=== PATIENT | female | born 1995 | race Caucasian/White ===

== ENCOUNTER 2016-06-29 19:37 | Inpatient (IN) | payer BC ==
[~2016-06-29] VITALS: Ht 162.6 cm; Wt 63.5 kg
[2016-06-29 21:54] LABS: URINE APPEARANCE CLEAR (CLEAR); URINE BILIRUBIN NEG (NEG); URINE COLOR YELLOW; URINE EPITHELIAL CELL AUTO >30 /lpf (0-5); URINE NITRITE NEG (NEG); URINE PH 5.5 (4.5-7.5); URINE SPECIFIC GRAVITY 1.007 (1.000-1.030); UROBILINOGEN NEG (NEG); ZZUR CULT IF INDIC CLEAN CATCH NO
[2016-06-29] MEDS ORDERED: SODIUM CHLORIDE 0.9% 1000ML 1,000 ML IV STA ×2 (21:55)
[2016-06-29] MEDS ORDERED: ONDANSETRON INJ 2 MG/ML 2 ML VIAL IV STA (21:55)
[2016-06-29 21:58] LABS: MANUAL MICROSCOPIC REQUIRED? NO; REVIEW REQ? NO
[2016-06-29] MEDS ORDERED: OPTIRAY 320 IV PRN (22:00)
--- NOTE | 2016-06-29 22:00 | EMERGENCY ROOM VISIT NOTE ---
History Report prepared by Alejandro: Everardo Moe Under the Supervision of: Dr. Ethan Huber M.D. First contact with patient: 21:40 Chief Complaint: DIARRHEA Stated Complaint: DIARRHEA OVER 24 HRS, BLOOD,BLOATING,GAS,[place] Nursing Triage Summary: Patient reports diarrhea for over 24 hours that started out just watery and now is just blood. Patient states "I have really bad cramps and pain as well." History of Present Illness The patient is a 20 year old female who presents to the Emergency Room with complaints of persistent abdominal pain beginning about 2 weeks ago. She notes that she began feeling bloated and having pain since getting back from [place] for spring 2 weeks ago. She describes the pain as sharp, and notes that it began radiating to her back today. She adds that the pain is worsened with walking. The patient notes that her symptoms worsened 3 days ago. She went to [facility] for an unrelated cough, but also discussed the ongoing abdominal pain. She was told it was constipation and tried taking MiraLAX upon recommendation of [facility] but did not find relief of her symptoms. The patient tried taking a laxative last night. She has had diarrhea since taking the laxative, but her abdominal pain has persisted. She denies having diarrhea prior to taking the laxative. The patient notes having blood in her stools today. She has felt nauseous, but denies having any fever, vomiting, or urinary symptoms. She admits to taking Pepcid recently for heartburn. Source of History: patient Onset: 2 weeks ago Position: abdomen Quality: other (abdominal pain; bloating) Timing: other (persistent) Modifying Factors (Worsening): other (walking) Associated Symptoms: + diarrhea, No fevers, No urinary symptoms, No vomiting Review of Systems See HPI for pertinent positives & negatives. A total of 10 systems reviewed and were otherwise negative. Past Medical & Surgical Medical Problems: (1) No Known Active Medical Problems Family History No pertinent family history stated. Social History Smoking Status: Never Smoker Housing Status: lives with roommate Occupation Status: [employer] student Current/Historical Medications Scheduled Azithromycin (Zithromax Z-Cheng), 1 PKT PO UD Scheduled PRN Albuterol Sulfate (Proair Respiclick), 2 PUFFS INH Q4H PRN for Cough Allergies Coded Allergies: No Known Allergies (Unverified , 06/29/16) Physical Exam Vital Signs Date Time Temp Pulse Resp B/P Pulse Ox O2 Delivery O2 Flow Rate FiO2 06/30/16 00:23 104 18 142/85 98 Room Air 06/29/16 23:00 91 18 125/87 99 Room Air 06/29/16 21:36 101 16 141/92 100 Room Air 06/29/16 19:42 37.1 121 16 123/81 98 Room Air Physical Exam GENERAL: Patient is in no acute distress. HEENT: No acute trauma, normocephalic atraumatic, mucous membranes moist, no nasal congestion, no scleral icterus. NECK: No stridor, no adenopathy, no meningismus, trachea is midline. LUNGS: Clear to auscultation bilaterally, no wheeze, no rhonchi, breath sounds equal. HEART: Without murmurs gallops or rubs, regular rate and rhythm. ABDOMEN: Soft; diffusely mildly tender; bowel sounds positive, no hernias, no peritonitis. EXTREMITIES: No cyanosis or edema, full range of motion of all the joints without pain or difficulty, no signs for acute trauma. NEUROLOGIC: Oriented x 3, no acute motor or sensory deficits, no focal weakness. SKIN: No rash, no jaundice, no diaphoresis. Medical Decision & Procedures ER Provider Diagnostic Interpretation: Radiology results and stated below per my review and radiologist interpretation: CT ABDOMEN & PELVIS: Colonic wall thickening from cecum through descending colon, marked at the cecum and ascending colon, and there are adjacent inflammatory changes. Findings are compatible with colitis, which may be infectious or inflammatory etiology. Mild to moderate free fluid in the pelvis. No free air. No evidence of small bowel obstruction. Radiologist: Michael Salguero MD Laboratory Results 06/29/16 21:30 Red Blood Count 4.78, Mean Corpuscular Volume 91.8, Mean Corpuscular Hemoglobin 33.1, Mean Corpuscular Hemoglobin Concent 36.0, Mean Platelet Volume 10.4, Neutrophils (%) (Auto) 85.1, Lymphocytes (%) (Auto) 7.5, Monocytes (%) (Auto) 6.3, Eosinophils (%) (Auto) 0.5, Basophils (%) (Auto) 0.2, Neutrophils # (Auto) 16.79, Lymphocytes # (Auto) 1.48, Monocytes # (Auto) 1.24, Eosinophils # (Auto) 0.09, Basophils # (Auto) 0.03 06/29/16 21:30 Test 06/29/16 21:30 06/29/16 21:35 White Blood Count 19.70 K/uL (4.8-10.8) Red Blood Count 4.78 M/uL (4.2-5.4) Hemoglobin 15.8 g/dL (12.0-16.0) Hematocrit 43.9 % (37-47) Mean Corpuscular Volume 91.8 fL (80-100) Mean Corpuscular Hemoglobin 33.1 pg (25-34) Mean Corpuscular Hemoglobin Concent 36.0 g/dl (32-36) Platelet Count 327 K/uL (130-400) Mean Platelet Volume 10.4 fL (7.4-10.4) Neutrophils (%) (Auto) 85.1 % Lymphocytes (%) (Auto) 7.5 % Monocytes (%) (Auto) 6.3 % Eosinophils (%) (Auto) 0.5 % Basophils (%) (Auto) 0.2 % Neutrophils # (Auto) 16.79 K/uL (1.4-6.5) Lymphocytes # (Auto) 1.48 K/uL (1.2-3.4) Monocytes # (Auto) 1.24 K/uL (0.11-0.59) Eosinophils # (Auto) 0.09 K/uL (0-0.5) Basophils # (Auto) 0.03 K/uL (0-0.2) RDW Standard Deviation 43.5 fL (36.4-46.3) RDW Coefficient of Variation 13.1 % (11.5-14.5) Immature Granulocyte % (Auto) 0.4 % Immature Granulocyte # (Auto) 0.07 K/uL (0.00-0.02) Anion Gap 7.0 mmol/L (3-11) Est Creatinine Clear Calc Drug Dose 120.3 ml/min Estimated GFR () 149.2 Estimated GFR (Non- 128.7 BUN/Creatinine Ratio 5.1 (10-20) Calcium Level 9.3 mg/dl (8.5-10.1) Total Bilirubin 0.6 mg/dl (0.2-1) Aspartate Amino Transf (AST/SGOT) 19 U/L (15-37) Alanine Aminotransferase (ALT/SGPT) 22 U/L (12-78) Alkaline Phosphatase 83 U/L (45-117) Total Protein 7.8 gm/dl (6.4-8.2) Albumin 4.0 gm/dl (3.4-5.0) Globulin 3.8 gm/dl (2.5-4.0) Albumin/Globulin Ratio 1.1 (0.9-2) Lipase 87 U/L (73-393) Human Chorionic Gonadotropin, Qual NEG (NEG) Urine Color YELLOW Urine Appearance CLEAR (CLEAR) Urine pH 5.5 (4.5-7.5) Urine Specific [place] 1.007 (1.000-1.030) Urine Protein NEG (NEG) Urine Glucose (UA) NEG (NEG) Urine Ketones 1+ (NEG) Urine Occult Blood NEG (NEG) Urine Nitrite NEG (NEG) Urine Bilirubin NEG (NEG) Urine Urobilinogen NEG (NEG) Urine Leukocyte Esterase TRACE (NEG) Urine WBC (Auto) 1-5 /hpf (0-5) Urine RBC (Auto) 0-4 /hpf (0-4) Urine Hyaline Casts (Auto) 1-5 /lpf (0-5) Urine Epithelial Cells (Auto) >30 /lpf (0-5) Urine Bacteria (Auto) NEG (NEG) Urine Test NEG (NEG) Laboratory results reviewed by me. Medications Administered Medications (Trade) Dose Ordered Sig/Álvaro Route Start Time Stop Time Status Last Admin Dose Admin Sodium Chloride 1,000 ml @ 125 mls/hr Q8H STAT IV 06/29/16 21:55 06/30/16 05:54 06/29/16 23:18 125 MLS/HR Sodium Chloride (Nss 1000ml) 1,000 ml @ 999 mls/hr Q1H1M STAT IV 06/29/16 21:55 06/29/16 22:55 DC 06/29/16 22:05 999 MLS/HR Ondansetron HCl (Zofran Inj) 4 mg NOW STAT IV 06/29/16 21:55 06/29/16 21:57 DC 06/29/16 22:03 4 MG Ketorolac Tromethamine (Toradol Inj) 30 mg NOW STAT IV 06/30/16 00:24 06/30/16 00:26 DC 06/30/16 00:37 30 MG ED Course 2147: The patient was evaluated in room A4B. A complete history and physical exam was performed. 5: Ordered Zofran Inj 4 mg IV, NSS 1,000 ml @ 999 mls/hr IV, and NSS 1,000 ml @ 125 mls/hr IV. 4: Ordered Toradol Inj 30 mg IV. 3: I updated the patient. 0110: Discussed the patient's case with Dr. Hui. The patient will be evaluated for further management. Medical Decision Differentials include appendicitis, colitis, diverticulitis, anemia, electrolyte imbalance, constipation, hemorrhoids, and inflammatory bowel disease. There is a significant leukocytosis of 19,000, this could be consistent with infection. No concerning anemia. No significant electrolyte abnormality, kidney failure or hepatitis. There is no pancreatitis. Urinalysis does not suggest infection. testing is negative. Stool C. difficile testing is negative, stool cultures are pending. Abdominal and pelvis CT shows diffuse colitis. The patient was given IV saline, IV Zofran and IV Toradol, she is more comfortable. The patient has had ongoing issues for weeks. She has a marked leukocytosis, she has diffuse colitis and is having bloody bowel movements, I do think admission/observation would be warranted. The cause for the colitis is unclear. A colonoscopy may be required. I spoke with the patient and case management. The on-call hospitalist was consulted. Consults Time Called: 99 Consulting Physician: Dr. Hui [facility] Returned Call: [phone] Discussed the patient's case with Dr. Hui. The patient will be evaluated for further management. Impression Primary Impression: Bloody diarrhea Additional Impressions: Colitis Leukocytosis Scribe Attestation The scribe's documentation has been prepared under my direction and personally reviewed by me in its entirety. I confirm that the note above accurately reflects all work, treatment, procedures, and medical decision making performed by me. Departure Information Dispostion Being Evaluated By Hospitalist Referrals [facility] (PCP) Patient Instructions My [facility] Problem Qualifiers
[2016-06-29 22:05] LABS: BASO % 0.2 %; BASO ABS # 0.03 K/uL (0-0.2); COMPLETE YES; EOS % 0.5 %; HEMATOCRIT 43.9 % (37-47); IG% 0.4 %; LYMPH % 7.5 %; LYMPH ABS # 1.48 K/uL (1.2-3.4); MEAN CELL VOLUME 91.8 fL (80-100); MEAN CORPUSCULAR HEMOGLOBIN 33.1 pg (25-34); MEAN PLATELET VOLUME 10.4 fL (7.4-10.4); MONO % 6.3 %; NEUT % 85.1 %; PLATELET COUNT 327 K/uL (130-400); RED BLOOD COUNT 4.78 M/uL (4.2-5.4)
[2016-06-29 22:16] LABS: BUN/CREATININE RATIO 5.1 (10-20); CALCIUM 9.3 mg/dl (8.5-10.1); CREATININE 0.65 mg/dl (0.60-1.20); POTASSIUM 3.5 mmol/L (3.5-5.1)
[2016-06-29 22:19] LABS: ALB/GLOB RATIO 1.1 (0.9-2)
[2016-06-29] MEDS ORDERED: AZITTAB PO (22:21)
[2016-06-29] MEDS ORDERED: ALBU18002 INH (22:21)
[2016-06-29 22:30] LABS: PREG INTERNAL NEGATIVE QC NEG CLEAR BACKGROUND; PREG INTERNAL POSITIVE QC POS CONTROL LINE
[2016-06-30] VITALS (8 sets, daily range): BP systolic 105–116; BP diastolic 72–75; PULSE 72–92; TEMP 36.6–37; O2SAT 97–100; Ht 162.6 cm; Wt 63.5 kg
[2016-06-30] MEDS ORDERED: KETOROLAC TROMETHAMINE 30 MG/ML VIAL IV STA (00:24)
--- NOTE | 2016-06-30 01:48 | History and Physical ---
History & Physical Date & Time of Service: Jun 30, 2016 at 01:48 Chief Complaint: Diarrhea Over 24 Hrs, Blood,Bloating,Gas,[place] Primary Care Physician: [facility] History of Present Illness Source: patient This is a 20 y/o F, with no significant pmh who presents with a 24 hour period of bloody diarrhea. She reports that she was in [place] about 2 weeks ago for spring and since her return, she has had significant bloating, constipation and no appetitie. She also started experiencing intense sharp pains in her lower abdomen about 4 days ago. The pain is intermittent and about 6/10. About 2 days ago, she went to [facility] for an unrelated cough and had mentioned her symptoms. She was told to take miralax and a laxative for constipation. Since doing so, she has had multiple episodes of bloody diarrhea. Currently her stools are primarily blood. She also received Zpac for her cough of which she has taken 1 dose. She has also been using Pepcid, and peptobismol. This has never happened before. Her trip in and around [place] was unremarkable. None of her friends who travelled with her are sick. She has some associated nausea and chills. She denies family history of Ulcerative colitis / Crohns Social History Smoking Status: Never Smoker Alcohol Use: socially Drug Use: none Marital Status: single Housing status: lives with roommate Occupational Status: [employer] student Allergies Coded Allergies: No Known Allergies (Unverified , 06/29/16) Home Medications Scheduled Azithromycin (Zithromax Z-Cheng), 1 PKT PO UD Scheduled PRN Albuterol Sulfate (Proair Respiclick), 2 PUFFS INH Q4H PRN for Cough Review of Systems Constitutional: + chills, + fatigue, + weakness, No fever Eyes: No worsening of vision ENT: No hearing loss Respiratory: No cough, No dyspnea at rest, No dyspnea on exertion, No shortness of breath, No sputum, No wheezing Cardiovascular: No chest pain, No edema, No orthopnea Abdomen: + diarrhea, + nausea, + pain, No vomiting Genitourinary - Female: No dysuria, No urinary frequency, No urinary incontinence Physical Exam Vital Signs Date Time Temp Pulse Resp B/P Pulse Ox O2 Delivery O2 Flow Rate FiO2 06/30/16 00:23 104 18 142/85 98 Room Air 06/29/16 23:00 91 18 125/87 99 Room Air 06/29/16 21:36 101 16 141/92 100 Room Air 06/29/16 19:42 37.1 121 16 123/81 98 Room Air General Appearance: no apparent distress Eyes: PERRL, EOMI Respiratory/Chest: lungs clear, normal breath sounds, no respiratory distress, no accessory muscle use Abdomen/GI: soft, + tenderness (diffusely), + abnormal bowel sounds ( hyperactive bowel sounds) Back: no CVA tenderness Extremities/Musculoskelatal: no calf tenderness, normal capillary refill, no pedal edema Neurologic/Psych: no motor/sensory deficits, alert, normal mood/affect, oriented x 3 Diagnostics Laboratory Results Results Past 24 Hours Test 06/29/16 21:30 06/29/16 21:35 Range/Units White Blood Count 19.70 4.8-10.8 K/uL Red Blood Count 4.78 4.2-5.4 M/uL Hemoglobin 15.8 12.0-16.0 g/dL Hematocrit 43.9 37-47 % Mean Corpuscular Volume 91.8 80-100 fL Mean Corpuscular Hemoglobin 33.1 25-34 pg Mean Corpuscular Hemoglobin Concent 36.0 32-36 g/dl Platelet Count 327 130-400 K/uL Mean Platelet Volume 10.4 7.4-10.4 fL Neutrophils (%) (Auto) 85.1 % Lymphocytes (%) (Auto) 7.5 % Monocytes (%) (Auto) 6.3 % Eosinophils (%) (Auto) 0.5 % Basophils (%) (Auto) 0.2 % Neutrophils # (Auto) 16.79 1.4-6.5 K/uL Lymphocytes # (Auto) 1.48 1.2-3.4 K/uL Monocytes # (Auto) 1.24 0.11-0.59 K/uL Eosinophils # (Auto) 0.09 0-0.5 K/uL Basophils # (Auto) 0.03 0-0.2 K/uL RDW Standard Deviation 43.5 36.4-46.3 fL RDW Coefficient of Variation 13.1 11.5-14.5 % Immature Granulocyte % (Auto) 0.4 % Immature Granulocyte # (Auto) 0.07 0.00-0.02 K/uL Sodium Level 138 136-145 mmol/L Potassium Level 3.5 3.5-5.1 mmol/L Chloride Level 103 98-107 mmol/L Carbon Dioxide Level 28 21-32 mmol/L Anion Gap 7.0 3-11 mmol/L Blood Urea Nitrogen 3 7-18 mg/dl Creatinine 0.65 0.60-1.20 mg/dl Est Creatinine Clear Calc Drug Dose 120.3 ml/min Estimated GFR () 149.2 Estimated GFR (Non- 128.7 BUN/Creatinine Ratio 5.1 10-20 Random Glucose 92 70-99 mg/dl Calcium Level 9.3 8.5-10.1 mg/dl Total Bilirubin 0.6 0.2-1 mg/dl Aspartate Amino Transf (AST/SGOT) 19 15-37 U/L Alanine Aminotransferase (ALT/SGPT) 22 12-78 U/L Alkaline Phosphatase 83 45-117 U/L Total Protein 7.8 6.4-8.2 gm/dl Albumin 4.0 3.4-5.0 gm/dl Globulin 3.8 2.5-4.0 gm/dl Albumin/Globulin Ratio 1.1 0.9-2 Lipase 87 73-393 U/L Human Chorionic Gonadotropin, Qual NEG NEG Urine Color YELLOW Urine Appearance CLEAR CLEAR Urine pH 5.5 4.5-7.5 Urine Specific [place] 1.007 1.000-1.030 Urine Protein NEG NEG Urine Glucose (UA) NEG NEG Urine Ketones 1+ NEG Urine Occult Blood NEG NEG Urine Nitrite NEG NEG Urine Bilirubin NEG NEG Urine Urobilinogen NEG NEG Urine Leukocyte Esterase TRACE NEG Urine WBC (Auto) 1-5 0-5 /hpf Urine RBC (Auto) 0-4 0-4 /hpf Urine Hyaline Casts (Auto) 1-5 0-5 /lpf Urine Epithelial Cells (Auto) >30 0-5 /lpf Urine Bacteria (Auto) NEG NEG Urine Test NEG NEG Microbiology Results 06/29/16 Shiga Toxin Test, Received Pending 06/29/16 Stool Culture, Received Pending 06/29/16 C.difficile Toxin B Gene (PCR) - Final, Complete No C. difficile toxin B gene detected Impression Assessment and Plan This is a 20 y/o F who presents with acute bloody diarrhea. Etiologies considered include infectious (e.coli vs. shigella, vs parasitic/amebic), vs Inflammatory (IBD) Hematochezia: leucocytosis C.Diff negative Shiga, stool cultures, ova/parasite pending NSS Zofran for nausea GI consult Hemoccult pending H/H is stable- repeat in the AM CT abd with nonspecific colitis DVT Proph ambulation GERD Protonix Assessment and Plan Attending Addendum: I have physically seen and examined this patient, have directed their medical care, have supervised the medical residents activities, and agree with the H&P as noted above, with the following changes: The patient is awake, well-developed and adequately nourished, alert and oriented 3, normocephalic and atraumatic, lying in bed and in no acute distress. HEENT--PERRL, EOMI, mucous membranes and oropharynx dry. Neck--supple, no JVD or bruits, thyroid normal, trachea midline, no adenopathy. Heart--normal S1 and S2, no extra beats, no murmurs, rubs or gallops. Lungs--clear bilaterally with good air movement, no respiratory distress, no accessory muscle use. Abdomen--hyperactive bowel sounds, generalized tenderness, nondistended, no hernias or masses, no organomegaly. Extremities--no cyanosis, clubbing or edema. There are good distal pulses b/l. Dermatologic--normal skin turgor, normal color, warm and dry, no abnormal lymph nodes, no rash. Neurologic--cranial nerves II through XII grossly intact, motor and sensory examination normal. Rheumatologic--normal range of motion, nontender, muscles and joints. Psychiatric--normal affect. Assessment and Plan: Acute bloody diarrhea--patient will be admitted to the medical floor with IV fluids rehydration and nothing by mouth status until seen by gastroenterology. Potential etiologies include infectious such as viral, bacterial, or parasitic, versus inflammatory bowel disease. Would not start antibiotics. Her C. difficile study is negative. She'll be placed on Zofran 4 mg IV every 6 hours when necessary for nausea and 40 mg IV daily.
[2016-06-30] MEDS ORDERED: ALUMINUM/MAGNESIUM/SIMETH (MAALOX MAX) 30 ML UDC PO PRN (02:00)
[2016-06-30] MEDS ORDERED: MAGNESIUM HYDROXIDE SUSP 30 ML UDC PO PRN (02:00)
[2016-06-30] MEDS ORDERED: POLYETHYLENE (MIRALAX) 17 GM PACK PO PRN (02:00)
[2016-06-30] MEDS: SODIUM CHLORIDE 0.9% 1000ML 1,000 ML IV SCH ×3 (03:55→22:29)
[2016-06-30] MEDS ORDERED: INFLUENZA VIRUS QUAD VACCINE 0.5 ML SYR IM. ONE (05:45)
[2016-06-30] MEDS ORDERED: INFLUENZA ADMINISTRATION CHARGE ONE (05:45)
--- NOTE | 2016-06-30 07:58 | DIAGNOSTIC IMAGING REPORT ---
CT SCAN OF THE ABDOMEN AND PELVIS WITH IV CONTRAST CLINICAL HISTORY: Diarrhea. Hematochezia. Bloating. Generalized abdominal pain. COMPARISON STUDY: No priors. TECHNIQUE: Following the IV administration of 91 cc of Optiray 320, CT scan of the abdomen and pelvis is performed from the lung bases to the proximal femora. Images are reviewed in the axial, sagittal, and coronal planes. IV contrast was administered without complication. Automated dose control exposure was utilized. CT DOSE: 310.12 mGy.cm FINDINGS: Lung bases: The heart is normal in size and without pericardial effusion. Minimal tree-in-bud nodularity is identified at the left lung base. The lung bases are otherwise clear. Liver: The contrast-enhanced liver is normal in size, contour, and attenuation. There is no intrahepatic biliary ductal dilatation. The hepatic veins and portal veins are patent. Gallbladder: Unremarkable. Spleen: Normal in size and attenuation. Pancreas: Unremarkable. Adrenal glands: Unremarkable. Kidneys: The contrast enhanced kidneys are normal in size and without hydronephrosis. The kidneys enhance symmetrically. Abdominal vasculature: The abdominal aorta is normal in course and caliber. Bowel: The small bowel and colon are normal in course and caliber. There is significant wall thickening and edema identified throughout the colon, Jami involving the cecum and ascending colon. There is significant right sided pericolonic fluid. The appearance is consistent with a nonspecific colitis. The appendix is not clearly visualized, likely due to pericecal inflammation. Peritoneum: There is trace perihepatic free fluid as well as a moderate volume of free fluid in the pelvis. No intraperitoneal free air is seen. There is a fat-containing umbilical hernia. Lymphadenopathy: Prominent mesenteric lymph nodes are likely on a reactive basis. Pelvic viscera: The bladder, uterus, and adnexa are normal as visualized. There are bilateral ovarian follicles. Skeletal structures: No lytic or blastic lesions are seen. IMPRESSION: 1. Findings are consistent with a nonspecific pancolitis, likely on an infectious or inflammatory basis in this age group. 2. There is a small volume of associated abdominopelvic ascites Electronically signed by: Ethan Dutta M.D. 06/30/2016 7:56 AM Dictated Date/Time: 06/30/2016 7:51 AM
--- NOTE | 2016-06-30 08:13 | Family Medicine Progress Note ---
Progress Note Date of Service Jun 30, 2016. Subjective Pt evaluation today including: conversation w/ patient, conversation w/ family , physical exam, chart review, lab review Patient says that her diarrhea was countless and consisting of bright red blood in the last 24 hours. Overnight however, she has seen less bright red blood and finds the stool to be more dark and tarry. She has had 8 episodes already this morning, but this is a significant decrease since prior. Prior to the her recent trip to [place], she was have regular, once daily bowel movements. Her nausea is improved with Zofran. Her abdomen still feels bloated and she feels diffuse abdominal discomfort, but it is tolerable currently. She otherwise denies symptoms of anemia, including lightheadedness, dizziness, SOB, CP, weakness. She denies family history of GI issues. Constitutional: No fever, No sweats Respiratory: No shortness of breath Cardiovascular: No chest pain, No edema, No palpitations Abdomen: + GI bleeding, + diarrhea, + pain, No nausea, No vomiting Female : No dysuria, No hematuria Objective Vital Signs Date Time Temp Pulse Resp B/P Pulse Ox O2 Delivery O2 Flow Rate FiO2 06/30/16 02:58 36.6 92 18 105/72 Room Air 06/30/16 02:57 36.6 92 18 105/72 100 Room Air 06/30/16 02:29 90 18 127/65 97 06/30/16 00:23 104 18 142/85 98 Room Air 06/29/16 23:00 91 18 125/87 99 Room Air 06/29/16 21:36 101 16 141/92 100 Room Air 06/29/16 19:42 37.1 121 16 123/81 98 Room Air Physical Exam General Appearance: WD/WN, no apparent distress Eyes: normal inspection ENT: hearing grossly normal Neck: supple, no adenopathy Respiratory/Chest: chest non-tender, lungs clear, normal breath sounds, no respiratory distress, no accessory muscle use Cardiovascular: regular rate, rhythm, no murmur Abdomen: normal bowel sounds, soft, no organomegaly, + rebound, + tenderness, + pertinent finding (Mild bloating) Neurologic/Psychiatric: alert, normal mood/affect, oriented x 3 Skin: normal color, warm/dry, no rash Laboratory Results Results Past 24 Hours Test 06/30/16 00:00 06/30/16 08:20 06/30/16 09:12 06/30/16 21:37 Range/Units White Blood Count 11.67 4.8-10.8 K/uL Red Blood Count 3.99 4.2-5.4 M/uL Hemoglobin 12.9 12.0-16.0 g/dL Hematocrit 36.1 37-47 % Mean Corpuscular Volume 90.5 80-100 fL Mean Corpuscular Hemoglobin 32.3 25-34 pg Mean Corpuscular Hemoglobin Concent 35.7 32-36 g/dl Platelet Count 208 130-400 K/uL Mean Platelet Volume 9.9 7.4-10.4 fL Neutrophils (%) (Auto) 79.0 % Lymphocytes (%) (Auto) 12.6 % Monocytes (%) (Auto) 6.9 % Eosinophils (%) (Auto) 0.9 % Basophils (%) (Auto) 0.2 % Neutrophils # (Auto) 9.22 1.4-6.5 K/uL Lymphocytes # (Auto) 1.47 1.2-3.4 K/uL Monocytes # (Auto) 0.81 0.11-0.59 K/uL Eosinophils # (Auto) 0.10 0-0.5 K/uL Basophils # (Auto) 0.02 0-0.2 K/uL RDW Standard Deviation 42.9 36.4-46.3 fL RDW Coefficient of Variation 13.1 11.5-14.5 % Immature Granulocyte % (Auto) 0.4 % Immature Granulocyte # (Auto) 0.05 0.00-0.02 K/uL Sodium Level 142 136-145 mmol/L Potassium Level 3.5 3.5-5.1 mmol/L Chloride Level 110 98-107 mmol/L Carbon Dioxide Level 23 21-32 mmol/L Anion Gap 9.0 3-11 mmol/L Blood Urea Nitrogen 3 7-18 mg/dl Creatinine 0.49 0.60-1.20 mg/dl Est Creatinine Clear Calc Drug Dose 159.6 ml/min Estimated GFR () > 150.0 Estimated GFR (Non- 141.2 BUN/Creatinine Ratio 6.3 10-20 Random Glucose 77 70-99 mg/dl Calcium Level 8.5 8.5-10.1 mg/dl Stool Occult Blood POSITIVE NEGATIVE Microbiology Results 3/30/17 WBC Smear - Final, Complete Assessment and Plan 20 year old female admitted with abdominal bloating and acute bloody diarrhea, likely secondary to either infection or inflammation Hematochezia - c.diff negative - NPO with mIVF NSS - Zofran IV 4mg PRN - Pain management: Tylenol PO 650mg q4h - Heating pad for abdominal symptom relief - Trace stool leukocytes, shiga, stool cultures, ova/parasite pending - GI consulted- recs appreciated - Monitor CBC, BMP GERD - Protonix IV 40mg daily Prophylaxis - Ambulation Continued [facility] stay due to: inadequate po fluid intake, multiple IV medications needed Discharge planning: home Resident Tracking Resident Involvement: Resident Care Provided Care Provided: Adult Hospital Medicine History Resident Physician Supervision Note: I was present with Dr. Shah during the history and exam. I discussed the case with the resident and agree with the findings and plan as documented in the note. Any exceptions or clarifications are listed here. Pt seen and examined at bedside. Mild diffuse abdominal crampy discomfort without hematochezia or melena since previous evaluation. Her BM are generally regular, daily and without comment. Reports no nausea, vomiting, lightheadedness , headache, vision/hearing changes, sensory changes. Symptoms onset during 1 week vacation in [place] for spring. At that time, patient consumed copious amounts of alcohol (resulting in at least one black out ) and ate several varieties of local food prepared [place] She denies any other substance use. She reports that she is not sexually active at this time nor during the trip. No family history of abdominal disorders or complaints c/w IBD. General Appearance: WD/WN, no apparent distress Respiratory: chest non-tender, lungs clear, normal breath sounds, no respiratory distress Cardiovascular: normal peripheral pulses, regular rate, rhythm, no edema, no murmur Gastrointestinal: normal bowel sounds, soft, no organomegaly, tenderness (mild) Assessment/Plan 20 y/o female w/ recent alcohol overuse, h/o GERD and international travel to with exposures presents w/ abd pain and hematochezia Abd pain and hematochezia - pancolitis on CT abd - GI aware and recommendations appreciated. Prep for colonoscopy in AM. Monitor I/O. Check CBC in AM. PPI. Alcohol overuse - counseled patient regarding risks and dangers as well as implications re: current medical issues in relation to overuse.
[2016-06-30] MEDS: ONDANSETRON INJ 2 MG/ML 2 ML VIAL IV PRN ×2 (08:15→22:29)
[2016-06-30] MEDS: ACETAMINOPHEN 325 MG TAB PO PRN ×3 (08:18→17:07)
[2016-06-30 09:14] LABS: HEMATOCRIT 36.1 % (37-47); MEAN CELL VOLUME 90.5 fL (80-100); MEAN CORPUSCULAR HEMOGLOBIN 32.3 pg (25-34); MEAN CORPUSCULAR HGB CONC 35.7 g/dl (32-36); MEAN PLATELET VOLUME 9.9 fL (7.4-10.4); PLATELET COUNT 208 K/uL (130-400); RED BLOOD COUNT 3.99 M/uL (4.2-5.4); WHITE BLOOD COUNT 11.67 K/uL (4.8-10.8)
[2016-06-30 09:15] LABS: BLOOD UREA NITROGEN 3 mg/dl (7-18); BUN/CREATININE RATIO 6.3 (10-20); CALCIUM 8.5 mg/dl (8.5-10.1); CARBON DIOXIDE 23 mmol/L (21-32); CHLORIDE 110 mmol/L (98-107); CREATININE 0.49 mg/dl (0.60-1.20); GLUCOSE 77 mg/dl (70-99); POTASSIUM 3.5 mmol/L (3.5-5.1); SODIUM 142 mmol/L (136-145)
[2016-06-30] MEDS: PANTOprazole INJ 40 MG in SYRINGE 0 ML IV SCH (11:50)
[2016-06-30 13:13] LABS: BASO % 0.2 %; BASO ABS # 0.02 K/uL (0-0.2); COMPLETE YES; EOS % 0.9 %; IG% 0.4 %; LYMPH % 12.6 %; LYMPH ABS # 1.47 K/uL (1.2-3.4); MONO % 6.9 %
[2016-06-30] MEDS ORDERED: LAVAGE SOLUTION 4000ML PO SCH (18:00)
--- NOTE | 2016-06-30 18:05 | GASTROINTESTINAL CONSULTATION ---
DATE OF CONSULTATION: 06/30/2016 CHIEF COMPLAINT: Abdominal pain, bloating, abnormal CT, rectal bleeding. HISTORY OF PRESENT ILLNESS: Ms. Bedolla is a 20-year-old white female, attending [employer] for [employer] in her second year. The patient was admitted because of increasing abdominal discomfort with rectal bleeding. The patient had traveled to [place] for spring with roommates and had some sense of bloating during that visit while in [place]. At that time she was taking medications that included Advil. However, she was not experiencing diarrhea or any rectal bleeding. She continued to experience bloating and discomfort and actually had diminished stool output by her recollection. She also had fairly significant fatigue that required her to sleep earlier and longer in the daytime than usual. The patient also has been experiencing a chronic cough for the past month. 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 The patient was seen at [facility] on Monday because of the persistent cough as well as some of the bloating and they had prescribed an inhaler as well as a Z-Cheng, for which she took the first 2 tablets, but took no additional medications. Prior to this, she had been on no antibiotics or taking any other medications other than NSAIDs. On Monday, she began taking some mild laxative products and this produced a significant increase in her stool patterns and ultimately between Monday and Monday, this became bloody in nature. In the past for her reflux, she had been on Pepcid and she was also taking Pepto-Bismol while in [place]. The patient denies any past medical or surgical history other than the vocal cord nodules and perhaps reflux, for which she was taking Zantac. ALLERGIES: She has no known drug allergies. MEDICATIONS: Her current home medications are essentially none except for the prescription of Z-Cheng, for which she took 1 agent. She denied any chest pains or shortness of breath despite a chronic cough. There was a clear sputum production at times. The patient denies any fevers, chills for the past month including the recent abdominal discomfort and bloody diarrhea. FAMILY HISTORY: Unremarkable. There is no history of inflammatory bowel disease by way of ulcerative colitis or Crohn disease in first or second degree relatives. SOCIAL HISTORY: The patient denies tobacco usage. She does drink alcoholic beverages on occasion, particularly weekends. 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 REVIEW OF SYSTEMS: Otherwise noncontributory based on 14-point exam. The patient denies dysuria, hematuria, significant joint aches, skin disorders or prior gastrointestinal illnesses by way of diarrhea, constipation, melena, bright red blood per rectum, hematemesis or coffee-ground emesis. PHYSICAL EXAMINATION: GENERAL: Today shows a well-developed female, in no acute distress. HEENT: The sclerae are anicteric, conjunctiva moist. Oral mucosa moist. HEART: Normal S1, S2. LUNGS: Clear to auscultation without rales, rhonchi or wheeze. ABDOMEN: Soft, nontender, nondistended with normal active bowel sounds. There is no rebound or guarding. I do not appreciate hepatosplenomegaly. EXTREMITIES: Without clubbing, cyanosis or edema. RECTAL: Deferred at this time. LABORATORY STUDIES: Imaging on admission included a CT scan that shows a moderate pancolonic nonspecific colitis with fluid accumulation on the right side around the colon. There is no evidence of free air and/or obstruction. The remainder of the abdominal contents including liver, spleen, pancreas and kidneys are all normal. Most of the pericolonic fluid is occurring on the right side. There are prominent reactive appearing mesenteric lymph nodes. Laboratory studies on admission showed a white count of 19.7 with a hemoglobin of 15.8 and platelets 327,000. Repeat labs this morning show white count down to 11.7, hemoglobin 12.9, platelets 208,000. The patient's LFTs on admission and lipase were all normal including total bili 0.6, ALT 22, AST 19, alk phos 93, lipase 87. Beta-hCG is negative. The stool studies that are currently available including negative C. diff status, fecal white blood cells are moderate with colonic leticia noted. There is no evidence for Shigella, Salmonella, although this is a preliminary value. There is no Campylobacter identified. IMPRESSION: The patient with relative acute onset of rectal bleeding. She has had a few weeks of bloating in the abdomen, which occurred during her travel to [place]. No one else has any similar illnesses. At the present time there are also several stool studies including ova and parasites, Giardia and other agents for diarrhea pathogens that are pending. The differential diagnosis includes an unidentified infectious etiology as well as chronic inflammatory bowel disease as the patient's first presentation. I do not see any evidence based on her BUN and creatinine and CBC that a microcytic anemia is developing or that an upper GI bleed is suspected. I made the following recommendations. We will plan for colonoscopy tomorrow after bowel prep. With a normal BUN and creatinine, I do not think that upper endoscopy is currently necessary. However, this will eventually need to be performed, given the patient's history of reflux and vocal cord changes that may be reflux related as well as the patient's hoarseness. This can be arranged as an outpatient once this acute illness is resolved. We will follow with you. Plan is for colonoscopy tomorrow after a bowel prep this evening. Dr. Martin will be performing the colonoscopy tomorrow. JESSIE
[2016-06-30] MEDS ORDERED: NURSING VERBAL MED ORDER ONE ×2 (19:30→22:30)
[2016-06-30] MEDS ORDERED: MAGNESIUM CITRATE 296 ML/BTL PO ONE (20:00)
[2016-06-30] MEDS: KETOROLAC TROMETHAMINE 30 MG/ML VIAL IV. PRN (22:29)
[2016-07-01 07:20] LABS: BASO % 0.3 %; BASO ABS # 0.03 K/uL (0-0.2); COMPLETE YES; EOS % 1.3 %; HEMATOCRIT 32.8 % (37-47); IG% 0.5 %; LYMPH % 14.7 %; LYMPH ABS # 1.56 K/uL (1.2-3.4); MEAN CELL VOLUME 90.6 fL (80-100); MEAN CORPUSCULAR HEMOGLOBIN 31.2 pg (25-34); MEAN CORPUSCULAR HGB CONC 34.5 g/dl (32-36); MEAN PLATELET VOLUME 9.9 fL (7.4-10.4); MONO % 7.1 %; NEUT % 76.1 %; PLATELET COUNT 199 K/uL (130-400); RED BLOOD COUNT 3.62 M/uL (4.2-5.4); WHITE BLOOD COUNT 10.64 K/uL (4.8-10.8)
[2016-07-01 07:32] VITALS: BP 109/74; PULSE 78; TEMP 36.7; O2SAT 99
[2016-07-01 07:45] LABS: BLOOD UREA NITROGEN 4 mg/dl (7-18); BUN/CREATININE RATIO 9.3 (10-20); CALCIUM 7.9 mg/dl (8.5-10.1); CARBON DIOXIDE 25 mmol/L (21-32); CHLORIDE 111 mmol/L (98-107); CREATININE 0.44 mg/dl (0.60-1.20); GLUCOSE 70 mg/dl (70-99); POTASSIUM 3.4 mmol/L (3.5-5.1); SODIUM 143 mmol/L (136-145)
--- NOTE | 2016-07-01 07:50 | Family Medicine Progress Note ---
Progress Note Date of Service Jul 01, 2016. Subjective Pt evaluation today including: conversation w/ patient, conversation w/ family , physical exam, chart review, lab review Patient says that her diarrhea was countless and consisting of bright red blood again after starting the bowel prep. Her nausea and abdominal pain also worsened , but were improved with Zofran and Toradol. Her abdomen still feels bloated and she feels diffuse abdominal discomfort but worse along the left side of her abdomen. It is tolerable currently at rest. She otherwise denies symptoms of anemia, including lightheadedness, dizziness, SOB, CP, weakness. Patient and family had multiple questions regarding the process of colonoscopy and management thereafter, and patient was also anxious about the impending enema prior to the colonoscopy. Significant time spent explaining process and answering questions to family's satisfaction, and subsequently there were no further questions or concerns. Constitutional: No chills, No fatigue, No fever, No weakness Respiratory: No cough, No hemoptysis, No shortness of breath Cardiovascular: No chest pain, No edema, No orthopnea, No palpitations Abdomen: + GI bleeding, + diarrhea, + nausea, + pain, No vomiting Musculoskeletal: No joint pain, No muscle pain Female : No dysuria, No hematuria Objective Vital Signs Date Time Temp Pulse Resp B/P Pulse Ox O2 Delivery O2 Flow Rate FiO2 07/01/16 07:32 36.7 78 16 109/74 99 Room Air 07/01/16 00:00 Room Air 06/30/16 23:42 37.0 75 18 116/75 97 Room Air 06/30/16 23:38 36.8 72 16 111/74 98 Room Air 06/30/16 17:22 36.8 72 16 111/74 98 Room Air 06/30/16 16:00 98 Room Air 06/30/16 09:32 36.8 84 16 107/73 99 06/30/16 08:00 99 Room Air Physical Exam General Appearance: WD/WN, no apparent distress Eyes: normal inspection ENT: hearing grossly normal Neck: supple Respiratory/Chest: lungs clear, normal breath sounds, no respiratory distress, no accessory muscle use Cardiovascular: regular rate, rhythm, no murmur Abdomen: normal bowel sounds, soft, + rebound, + tenderness (diffusely, worse on LUQ and LLQ) Extremities: no pedal edema, no calf tenderness, + swelling (secondary to IV fluid) Neurologic/Psychiatric: alert, normal mood/affect, oriented x 3 Skin: normal color, warm/dry, no rash Laboratory Results Results Past 24 Hours Test 07/01/16 06:50 Range/Units White Blood Count 10.64 4.8-10.8 K/uL Red Blood Count 3.62 4.2-5.4 M/uL Hemoglobin 11.3 12.0-16.0 g/dL Hematocrit 32.8 37-47 % Mean Corpuscular Volume 90.6 80-100 fL Mean Corpuscular Hemoglobin 31.2 25-34 pg Mean Corpuscular Hemoglobin Concent 34.5 32-36 g/dl Platelet Count 199 130-400 K/uL Mean Platelet Volume 9.9 7.4-10.4 fL Neutrophils (%) (Auto) 76.1 % Lymphocytes (%) (Auto) 14.7 % Monocytes (%) (Auto) 7.1 % Eosinophils (%) (Auto) 1.3 % Basophils (%) (Auto) 0.3 % Neutrophils # (Auto) 8.10 1.4-6.5 K/uL Lymphocytes # (Auto) 1.56 1.2-3.4 K/uL Monocytes # (Auto) 0.76 0.11-0.59 K/uL Eosinophils # (Auto) 0.14 0-0.5 K/uL Basophils # (Auto) 0.03 0-0.2 K/uL RDW Standard Deviation 42.3 36.4-46.3 fL RDW Coefficient of Variation 12.9 11.5-14.5 % Immature Granulocyte % (Auto) 0.5 % Immature Granulocyte # (Auto) 0.05 0.00-0.02 K/uL Sodium Level 143 136-145 mmol/L Potassium Level 3.4 3.5-5.1 mmol/L Chloride Level 111 98-107 mmol/L Carbon Dioxide Level 25 21-32 mmol/L Anion Gap 7.0 3-11 mmol/L Blood Urea Nitrogen 4 7-18 mg/dl Creatinine 0.44 0.60-1.20 mg/dl Est Creatinine Clear Calc Drug Dose 177.7 ml/min Estimated GFR () > 150.0 Estimated GFR (Non- 146.3 BUN/Creatinine Ratio 9.3 10-20 Random Glucose 70 70-99 mg/dl Calcium Level 7.9 8.5-10.1 mg/dl Assessment and Plan 20 year old female admitted with abdominal bloating and acute bloody diarrhea, likely secondary to either infection or inflammation Hematochezia - c.diff negative, stool leuk positive, GI consulted- recs appreciated. Colonoscopy showed congested, erythematous, granular, hemorrhagic, inflamed and ulcerated mucosa from cecum to sigmoid colon, consistent with IBD - Symptom relief: Zofran IV 4mg PRN, Toradol IV 30mg, Tylenol PO 650mg q4h, heating pad - Solumedrol IV 20mg q12h, mesalamine 1600mg TID - Monitor CBC, BMP - Stool shiga, stool cultures, ova/parasite results pending. Colon biopsy pathology pending GERD - Protonix IV 40mg daily, Maalox 15ml q4h Prophylaxis - Ambulation Dispo - Full code Continued [facility] stay due to: other Discharge planning: home Resident Tracking Resident Involvement: Resident Care Provided Care Provided: Adult [facility] Medicine History Resident Physician Supervision Note: I was present with Dr. Shah during the history and exam. I discussed the case with the resident and agree with the findings and plan as documented in the note. Any exceptions or clarifications are listed here. Pt seen and examined at bedside. Some increased hematochezia and crampy abd pain w/ colonoscopy which improved with zofran and pain control. Presently pain is greatly improved from yesterday and she is resting comfortably. She tolerated the endoscopy well. General Appearance: WD/WN, no apparent distress Respiratory: chest non-tender, lungs clear, normal breath sounds, no respiratory distress Cardiovascular: normal peripheral pulses, regular rate, rhythm, no edema, no murmur Gastrointestinal: normal bowel sounds, soft, no organomegaly, tenderness (mild mostly left sided TTP) Assessment/Plan 20 y/o female w/ recent alcohol overuse, h/o GERD and international travel to with exposures presents w/ abd pain and hematochezia Colitis concerning for IBD - GI aware and recommendations appreciated. Colonoscopy concerning for IBD. Follow pathology. Methylprednisolone Alcohol overuse - counseled patient 06.30.16 regarding risks and dangers as well as implications re: current medical issues in relation to overuse. 30 minutes spent with patient and family reviewing implications of colonoscopy including potential IBD and pathology results. Also spent time reviewing lifestyle changes including avoidance of alcohol, specific food related intolerance, potential future flares.
[2016-07-01] MEDS: SODIUM CHLORIDE 0.9% 1000ML 1,000 ML IV SCH ×2 (08:11→13:59)
[2016-07-01] MEDS: PANTOprazole INJ 40 MG in SYRINGE 0 ML IV SCH (08:11)
[2016-07-01] MEDS: KETOROLAC TROMETHAMINE 30 MG/ML VIAL IV. PRN (08:22)
[2016-07-01] MEDS: ONDANSETRON INJ 2 MG/ML 2 ML VIAL IV PRN (08:22)
[2016-07-01] MEDS ORDERED: MAGNESIUM CITRATE 296 ML/BTL PO ONE (09:00)
[2016-07-01] MEDS ORDERED: SOD PHOSPHATE/SOD BIPHOSPHATE ENEMA 132 ML BTL PR ONE (10:00)
[2016-07-01 11:30] VITALS: BP 109/74; PULSE 78; TEMP 36.7; O2SAT 99
--- NOTE | 2016-07-01 11:47 | History & Physical Bridge Note ---
H&P Re-Evaluation Bridge Note: I have examined the patient, reviewed the History & Physical and in the interval since the performance of the History & Physical I have noted the following changes of clinical significance: No changes noted
[2016-07-01] MEDS ORDERED: PROPOFOL IV EMULSION 10 MG/ML 20 ML VIAL IV ONE (12:17)
[2016-07-01] MEDS ORDERED: LIDOCAINE HCL 2% 2 ML VIAL (20MG/ML) ONE (12:17)
[2016-07-01] MEDS ORDERED: MIDAZOLAM HCL 1 MG/ML 2ML VIAL ONE (12:17)
--- NOTE | 2016-07-01 12:49 | GI REPORT ---
Procedure Date: 07/01/2016 12:08 PM Procedure: Colonoscopy Indications: Hematochezia Medicines: Propofol per Anesthesia Complications: No immediate complications. Estimated blood loss: Minimal. Estimated Blood Loss: Estimated blood loss was minimal. Procedure: Pre-Anesthesia Assessment: - Prior to the procedure, a History and Physical was performed, and patient medications and allergies were reviewed. The patient's tolerance of previous anesthesia was also reviewed. The risks and benefits of the procedure and the sedation options and risks were discussed with the patient. All questions were answered, and informed consent was obtained. Prior Anticoagulants: The patient has taken no previous anticoagulant or antiplatelet agents. ASA Grade Assessment: I - A normal, healthy patient. After reviewing the risks and benefits, the patient was deemed in satisfactory condition to undergo the procedure. After I obtained informed consent, the scope was passed under direct vision. Throughout the procedure, the patient's blood pressure, pulse, and oxygen saturations were monitored continuously. The pediatric scope was introduced through the anus and advanced to the terminal ileum, with identification of the appendiceal orifice and IC valve. The colonoscopy was performed without difficulty. The patient tolerated the procedure well. The quality of the bowel preparation was good. Findings: The perianal and digital rectal examinations were normal. Pertinent negatives include normal sphincter tone, no palpable rectal lesions and no anal lesion or abnormality was detected. The terminal ileum appeared normal. Biopsies were taken with a cold forceps for histology. Estimated blood loss was minimal. Verification of patient identification for the specimen was done by the physician and dialysis patient care technician using the patient's name and medical record number. A segmental and patchy area of moderately congested, erythematous, granular, hemorrhagic, inflamed and ulcerated mucosa was found from cecum to sigmoid colon. Biopsies were taken with a cold forceps for histology. Estimated blood loss was minimal. Verification of patient identification for the specimen was done by the physician and dialysis patient care technician using the patient's name and medical record number. The retroflexed view of the distal rectum and anal verge was normal and showed no anal or rectal abnormalities. The area from 0 to 30 cm proximal to the anus appeared normal. Biopsies were taken with a cold forceps for histology. Estimated blood loss was minimal. Verification of patient identification for the specimen was done by the physician and dialysis patient care technician using the patient's name and medical record number. Impression: - The examined portion of the ileum was normal. Biopsied. - Congested, erythematous, granular, hemorrhagic, inflamed and ulcerated mucosa from cecum to sigmoid colon. Biopsied. - The distal rectum and anal verge are normal on retroflexion view. Recommendation: - Return patient to [facility] for ongoing care. - Clear liquid diet. - WIll begin course of Solumedrol 20mg IV q 12. Will also begin mesalamine 1600 mg three times daily. - Await pathology results. MD Evaristo Ramirez MD 07/01/2016 12:49:24 PM This report has been signed electronically. Note Initiated On: 07/01/2016 12:08 PM I attest to the content of the Intraoperative Record and orders documented therein, exceptions below
--- NOTE | 2016-07-01 12:59 | Anesthesiology Progress Note ---
Anesthesia Post Op Note Date & Time Jul 01, 2016 at 12:59 Vital Signs Pain Intensity: 0.0 Vital Signs Past 12 Hours Date Time Temp Pulse Resp B/P Pulse Ox O2 Delivery O2 Flow Rate FiO2 07/01/16 12:53 83 16 114/76 100 Room Air 07/01/16 12:38 90 16 110/69 99 Room Air 07/01/16 11:43 37.1 90 20 144/79 97 Room Air 07/01/16 11:30 36.7 78 16 109/74 99 Room Air 07/01/16 10:05 Room Air 07/01/16 07:32 36.7 78 16 109/74 99 Room Air Notes Mental Status: alert / awake / arousable, participated in evaluation Pt Amnestic to Procedure: Yes Nausea / Vomiting: adequately controlled Pain: adequately controlled Airway Patency, RR, SpO2: stable & adequate BP & HR: stable & adequate Hydration State: stable & adequate Anesthetic Complications: no major complications apparent Pt doing very well.
[2016-07-01] MEDS: METHYLPREDNISOLONE IV 20 MG in SYRINGE 0 ML IV SCH (13:59)
[2016-07-01 14:56] VITALS: BP 114/75; PULSE 92; TEMP 36.5; O2SAT 92
[2016-07-01 16:00] VITALS: O2SAT 98
[2016-07-01] MEDS: ACETAMINOPHEN 325 MG TAB PO PRN (16:42)
[2016-07-02 00:46] VITALS: BP 103/70; PULSE 62; TEMP 37; O2SAT 97
[2016-07-02] MEDS: METHYLPREDNISOLONE IV 20 MG in SYRINGE 0 ML IV SCH ×2 (01:31→14:27)
[2016-07-02 08:04] LABS: BASO % 0.1 %; BASO ABS # 0.01 K/uL (0-0.2); COMPLETE YES; HEMATOCRIT 36.6 % (37-47); IG% 0.5 %; LYMPH % 6.6 %; LYMPH ABS # 0.84 K/uL (1.2-3.4); MEAN CELL VOLUME 90.8 fL (80-100); MEAN CORPUSCULAR HGB CONC 35.2 g/dl (32-36); MONO % 2.7 %; NEUT % 90.1 %; PLATELET COUNT 217 K/uL (130-400); RED BLOOD COUNT 4.03 M/uL (4.2-5.4); WHITE BLOOD COUNT 12.75 K/uL (4.8-10.8)
[2016-07-02 08:28] LABS: BLOOD UREA NITROGEN 3 mg/dl (7-18); BUN/CREATININE RATIO 5.3 (10-20); CALCIUM 8.9 mg/dl (8.5-10.1); CARBON DIOXIDE 25 mmol/L (21-32); CHLORIDE 109 mmol/L (98-107); CREATININE 0.49 mg/dl (0.60-1.20); GLUCOSE 108 mg/dl (70-99); POTASSIUM 3.8 mmol/L (3.5-5.1); SODIUM 142 mmol/L (136-145)
[2016-07-02] MEDS: PANTOprazole INJ 40 MG in SYRINGE 0 ML IV SCH (08:57)
[2016-07-02 09:02] VITALS: BP 106/68; PULSE 88; TEMP 36.9; O2SAT 98
--- NOTE | 2016-07-02 11:20 | GASTROENTEROLOGY PROGRESS NOTE ---
DATE: 07/02/2016 DATE: 07/02/2016. SUBJECTIVE: The patient states her abdominal pain is improving on IV steroids. Objectively her vital signs are normal. She had 3 loose stools following her colonoscopy yesterday. Colon biopsies are pending. She has severe colitis, particularly involving the right side of the colon. Colon biopsies were also sent for CMV immunostaining. LABORATORY DATA: Shows a white count is 12.75, hemoglobin 12.9, platelets are 217 with slightly left shift. Fecal leukocytes were positive. Stool for bacterial pathogens are negative. C. diff is negative. Stool for ova and parasites, cryptosporidium are pending as is serologic tests for Giardia. PHYSICAL EXAMINATION: GENERAL: The patient appears in no acute distress. Bowel sounds are hypoactive. There is slight tenderness in the right lower quadrant to deep palpation. No mass or rebound. IMPRESSION: The patient has severe colitis following return from spring in [place]. Bacterial pathogens are negative so far. She does have rather severe colitis. Parasite exam for the stool is pending. I also plan on ordering serological tests for Entamoeba histolytica. CMV stains and standard colon biopsy stains are pending. I will plan on also ordering inflammatory bowel disease antibodies. This could represent Crohn's or ulcerative colitis. The patient has severe colitis; multiple studies are pending at this time. I plan on adding serologic tests for inflammatory bowel disease and immunohistolytica. Will advance her to a full liquid diet and continue her on IV steroids for now.
--- NOTE | 2016-07-02 15:44 | Family Medicine Progress Note ---
Progress Note Date of Service Jul 02, 2016. Subjective Pt evaluation today including: conversation w/ patient, conversation w/ family , physical exam, chart review, lab review No acute events overnight. Patient says that she is significantly improved from previous. Her abdominal pain has significantly diminished.She has had 2 bowel movements overnight and up until this morning- they were loose but not watery, and without bright red blood. She has no complaints of nausea and otherwise denies symptoms of anemia. She has been escalated to full feeds and is tolerating diet well. Patient and parents had questions regarding pending results and forthcoming management plan, and these were addressed to their satisfaction. They had no further questions. Constitutional: No fatigue, No fever, No weakness Respiratory: No cough, No shortness of breath Cardiovascular: No chest pain, No edema, No palpitations Abdomen: + GI bleeding, + diarrhea, + pain, No nausea, No vomiting Female : No dysuria Neurologic: No balance problems, No numbness/tingling Skin: No itch, No rash Objective Vital Signs Date Time Temp Pulse Resp B/P Pulse Ox O2 Delivery O2 Flow Rate FiO2 07/02/16 09:02 36.9 88 16 106/68 98 Room Air 07/02/16 07:22 Room Air 07/02/16 00:46 37.0 62 20 103/70 97 Room Air 07/02/16 00:20 Room Air 07/01/16 16:00 98 Room Air Physical Exam General Appearance: WD/WN, no apparent distress Eyes: normal inspection ENT: normal ENT inspection Neck: supple, no adenopathy Respiratory/Chest: lungs clear, normal breath sounds, no respiratory distress, no accessory muscle use Cardiovascular: regular rate, rhythm, no murmur Abdomen: normal bowel sounds, soft, + tenderness (Significantly improved from yesterday) Extremities: normal inspection, no pedal edema, no calf tenderness Neurologic/Psychiatric: alert, normal mood/affect, oriented x 3 Skin: normal color, warm/dry, no rash Laboratory Results Results Past 24 Hours Test 07/02/16 07:52 07/02/16 11:30 Range/Units White Blood Count 12.75 4.8-10.8 K/uL Red Blood Count 4.03 4.2-5.4 M/uL Hemoglobin 12.9 12.0-16.0 g/dL Hematocrit 36.6 37-47 % Mean Corpuscular Volume 90.8 80-100 fL Mean Corpuscular Hemoglobin 32.0 25-34 pg Mean Corpuscular Hemoglobin Concent 35.2 32-36 g/dl Platelet Count 217 130-400 K/uL Mean Platelet Volume 10.0 7.4-10.4 fL Neutrophils (%) (Auto) 90.1 % Lymphocytes (%) (Auto) 6.6 % Monocytes (%) (Auto) 2.7 % Eosinophils (%) (Auto) 0.0 % Basophils (%) (Auto) 0.1 % Neutrophils # (Auto) 11.48 1.4-6.5 K/uL Lymphocytes # (Auto) 0.84 1.2-3.4 K/uL Monocytes # (Auto) 0.35 0.11-0.59 K/uL Eosinophils # (Auto) 0.00 0-0.5 K/uL Basophils # (Auto) 0.01 0-0.2 K/uL RDW Standard Deviation 42.5 36.4-46.3 fL RDW Coefficient of Variation 12.7 11.5-14.5 % Immature Granulocyte % (Auto) 0.5 % Immature Granulocyte # (Auto) 0.07 0.00-0.02 K/uL Sodium Level 142 136-145 mmol/L Potassium Level 3.8 3.5-5.1 mmol/L Chloride Level 109 98-107 mmol/L Carbon Dioxide Level 25 21-32 mmol/L Anion Gap 8.0 3-11 mmol/L Blood Urea Nitrogen 3 7-18 mg/dl Creatinine 0.49 0.60-1.20 mg/dl Est Creatinine Clear Calc Drug Dose 159.6 ml/min Estimated GFR () > 150.0 Estimated GFR (Non- 141.2 BUN/Creatinine Ratio 5.3 10-20 Random Glucose 108 70-99 mg/dl Calcium Level 8.9 8.5-10.1 mg/dl Assessment and Plan 20 year old female admitted with abdominal bloating and acute bloody diarrhea. Colonoscopy showed congested, erythematous, granular, hemorrhagic, inflamed and ulcerated mucosa from cecum to sigmoid colon, consistent with IBD, although several infectious studies remain pending Hematochezia - c.diff negative, stool leuk positive, stool shiga toxin and cultures negative. GI consulted- recs appreciated. - Symptom relief: Zofran IV 4mg PRN, Toradol IV 30mg, Tylenol PO 650mg q4h, heating pad - Solumedrol IV 20mg q12h, mesalamine 1600mg TID - Monitor CBC, BMP - Stool ova/parasite results pending. Colon biopsy pathology pending GERD - Protonix IV 40mg daily, Maalox 15ml q4h Prophylaxis - Ambulation Dispo - Full code Resident Physician Supervision Note: I was present with Dr. Shah during the history and exam. I discussed the case with the resident and agree with the findings and plan as documented in the note. Documented By: Johan Salazar Continued [facility] stay due to: multiple IV medications needed Discharge planning: home Resident Tracking Resident Involvement: Resident Care Provided Care Provided: Adult Hospital Medicine
[2016-07-02 15:58] VITALS: BP 103/68; PULSE 68; TEMP 36.3; O2SAT 99
[2016-07-03 00:35] VITALS: BP 105/72; PULSE 84; TEMP 36.6; O2SAT 99
[2016-07-03] MEDS: METHYLPREDNISOLONE IV 20 MG in SYRINGE 0 ML IV SCH ×2 (01:34→13:50)
[2016-07-03 07:33] VITALS: BP 109/74; PULSE 79; TEMP 36.9; O2SAT 99
[2016-07-03 07:48] LABS: BASO % 0.2 %; BASO ABS # 0.02 K/uL (0-0.2); COMPLETE YES; EOS % 0.1 %; IG% 0.7 %; LYMPH % 10.7 %; LYMPH ABS # 1.13 K/uL (1.2-3.4); MEAN CELL VOLUME 90.2 fL (80-100); MEAN CORPUSCULAR HEMOGLOBIN 31.3 pg (25-34); MEAN CORPUSCULAR HGB CONC 34.7 g/dl (32-36); NEUT % 84.3 %; PLATELET COUNT 235 K/uL (130-400); RED BLOOD COUNT 3.99 M/uL (4.2-5.4); WHITE BLOOD COUNT 10.57 K/uL (4.8-10.8)
--- NOTE | 2016-07-03 07:52 | Family Medicine Progress Note ---
Progress Note Date of Service Jul 03, 2016. Subjective Pt evaluation today including: conversation w/ patient, conversation w/ family , physical exam, chart review, lab review No acute events overnight. Patient says that she is significantly improved from previous, in fact she has no abdominal pain currently. She still has some bloating, but this is also improving. Patient had no bowel movements overnight and up until this morning. She has no complaints of nausea and otherwise denies symptoms of anemia. She is tolerating diet well and ambulating without any exacerbation in symptoms. Patient and parents had questions regarding steroid management therapy, given pending infectious tests and regarding lifestyle changes, and these were addressed to their satisfaction. They had no further questions. Constitutional: No fever, No sweats, No weakness Respiratory: No cough, No shortness of breath Cardiovascular: No chest pain, No edema, No palpitations Abdomen: No GI bleeding, No diarrhea, No nausea, No pain, No vomiting Musculoskeletal: No joint pain Female : No dysuria, No hematuria Objective Vital Signs Date Time Temp Pulse Resp B/P Pulse Ox O2 Delivery O2 Flow Rate FiO2 07/03/16 07:33 36.9 79 18 109/74 99 Room Air 07/03/16 00:35 36.6 84 20 105/72 99 Room Air 07/03/16 00:01 Room Air 07/02/16 16:00 Room Air 07/02/16 15:58 36.3 68 20 103/68 99 07/02/16 09:02 36.9 88 16 106/68 98 Room Air Physical Exam General Appearance: WD/WN, no apparent distress Eyes: normal inspection ENT: hearing grossly normal, pharynx normal Neck: supple, no adenopathy Respiratory/Chest: lungs clear, normal breath sounds, no respiratory distress, no accessory muscle use Cardiovascular: regular rate, rhythm, no murmur Abdomen: normal bowel sounds, non tender, soft Extremities: no pedal edema, no calf tenderness Neurologic/Psychiatric: alert, normal mood/affect, oriented x 3 Skin: normal color, warm/dry, no rash Laboratory Results Results Past 24 Hours Test 07/02/16 11:30 07/03/16 07:34 Range/Units White Blood Count 10.57 4.8-10.8 K/uL Red Blood Count 3.99 4.2-5.4 M/uL Hemoglobin 12.5 12.0-16.0 g/dL Hematocrit 36.0 37-47 % Mean Corpuscular Volume 90.2 80-100 fL Mean Corpuscular Hemoglobin 31.3 25-34 pg Mean Corpuscular Hemoglobin Concent 34.7 32-36 g/dl Platelet Count 235 130-400 K/uL Mean Platelet Volume 10.0 7.4-10.4 fL Neutrophils (%) (Auto) 84.3 % Lymphocytes (%) (Auto) 10.7 % Monocytes (%) (Auto) 4.0 % Eosinophils (%) (Auto) 0.1 % Basophils (%) (Auto) 0.2 % Neutrophils # (Auto) 8.92 1.4-6.5 K/uL Lymphocytes # (Auto) 1.13 1.2-3.4 K/uL Monocytes # (Auto) 0.42 0.11-0.59 K/uL Eosinophils # (Auto) 0.01 0-0.5 K/uL Basophils # (Auto) 0.02 0-0.2 K/uL RDW Standard Deviation 41.9 36.4-46.3 fL RDW Coefficient of Variation 12.9 11.5-14.5 % Immature Granulocyte % (Auto) 0.7 % Immature Granulocyte # (Auto) 0.07 0.00-0.02 K/uL Sodium Level 143 136-145 mmol/L Potassium Level 3.9 3.5-5.1 mmol/L Chloride Level 108 98-107 mmol/L Carbon Dioxide Level 26 21-32 mmol/L Anion Gap 9.0 3-11 mmol/L Blood Urea Nitrogen 4 7-18 mg/dl Creatinine 0.56 0.60-1.20 mg/dl Est Creatinine Clear Calc Drug Dose 139.6 ml/min Estimated GFR () > 150.0 Estimated GFR (Non- 135.2 BUN/Creatinine Ratio 7.7 10-20 Random Glucose 106 70-99 mg/dl Calcium Level 8.9 8.5-10.1 mg/dl Assessment and Plan 20 year old female admitted with abdominal bloating and acute bloody diarrhea. Colonoscopy showed congested, erythematous, granular, hemorrhagic, inflamed and ulcerated mucosa from cecum to sigmoid colon, consistent with IBD, although several infectious studies remain pending. Hematochezia - c.diff negative, stool leuk positive, stool shiga toxin and cultures negative. GI consulted- recs appreciated. - PRN symptom relief: Zofran IV 4mg, Toradol IV 30mg, Tylenol PO 650mg q4h, heating pad - Solumedrol IV 20mg q12h, mesalamine 1600mg TID - Monitor CBC, BMP - Infectious stool tests pending. Colon biopsy pathology pending. GERD - Maalox 15ml q4h PRN Prophylaxis - Protonix IV 40mg daily - Ambulation Dispo - Full code - Needs note for school Resident Physician Supervision Note: I was present with Dr. Shah during the history and exam. I discussed the case with the resident and agree with the findings and plan as documented in the note. Any exceptions or clarifications are listed here: I saw the patient with Dr. Shah. The patient's mother was present at the time of my visit; all questions were addressed. If patient continues to improve, may be able to convert to PO steroids tomorrow. Documented By: Johan Salazar Continued [facility] stay due to: multiple IV medications needed Discharge planning: home Resident Tracking Resident Involvement: Resident Care Provided Care Provided: Adult Hospital Medicine
[2016-07-03] MEDS: PANTOprazole INJ 40 MG in SYRINGE 0 ML IV SCH (07:54)
[2016-07-03 08:23] LABS: BLOOD UREA NITROGEN 4 mg/dl (7-18); BUN/CREATININE RATIO 7.7 (10-20); CALCIUM 8.9 mg/dl (8.5-10.1); CARBON DIOXIDE 26 mmol/L (21-32); CHLORIDE 108 mmol/L (98-107); CREATININE 0.56 mg/dl (0.60-1.20); GLUCOSE 106 mg/dl (70-99); POTASSIUM 3.9 mmol/L (3.5-5.1); SODIUM 143 mmol/L (136-145)
--- NOTE | 2016-07-03 11:04 | PROGRESS NOTE ---
DATE: 07/03/2016 SUBJECTIVE: The patient feels much better today and tolerated full liquids and is hungry to try solid food. Objectively her vital signs are normal. She is afebrile. She had 2 soft bowel movements yesterday, none so far today. She continues on IV steroids. PHYSICAL EXAMINATION: ABDOMEN: Soft, bowel sounds are normal to hypoactive. There are no discrete areas of tenderness. IMPRESSION: The patient has severe colitis of undetermined etiology. Stool for bacterial pathogens and Clostridium difficile are negative, but multiple other studies are still pending including stool for ova and parasites, cryptosporidium, serologic tests for Giardia and Entamoeba, histolytica colon biopsies and CMV stains as well as inflammatory bowel disease antibodies are all pending. At this point I plan on advancing her diet to a low fiber diet to see how she tolerates that. If she does well, we can switch her to oral steroids tomorrow. WEND
[2016-07-03 15:09] VITALS: BP 99/66; PULSE 75; TEMP 36.5; O2SAT 100
[2016-07-03] MEDS: MESALAMINE 400 MG CAPDR PO SCH (22:10)
[2016-07-04 00:10] VITALS: BP 115/78; PULSE 105; TEMP 37; O2SAT 98
[2016-07-04] MEDS: METHYLPREDNISOLONE IV 20 MG in SYRINGE 0 ML IV SCH (01:45)
[2016-07-04 06:41] LABS: BASO % 0.2 %; BASO ABS # 0.02 K/uL (0-0.2); COMPLETE YES; EOS % 0.2 %; HEMATOCRIT 36.7 % (37-47); LYMPH % 10.8 %; LYMPH ABS # 1.24 K/uL (1.2-3.4); MEAN CELL VOLUME 91.3 fL (80-100); MEAN CORPUSCULAR HEMOGLOBIN 31.1 pg (25-34); MEAN CORPUSCULAR HGB CONC 34.1 g/dl (32-36); MEAN PLATELET VOLUME 9.9 fL (7.4-10.4); MONO % 3.9 %; NEUT % 82.9 %; PLATELET COUNT 230 K/uL (130-400); RED BLOOD COUNT 4.02 M/uL (4.2-5.4); WHITE BLOOD COUNT 11.47 K/uL (4.8-10.8)
[2016-07-04 07:24] LABS: BLOOD UREA NITROGEN 10 mg/dl (7-18); BUN/CREATININE RATIO 17.6 (10-20); CALCIUM 8.8 mg/dl (8.5-10.1); CARBON DIOXIDE 27 mmol/L (21-32); CHLORIDE 106 mmol/L (98-107); CREATININE 0.59 mg/dl (0.60-1.20); GLUCOSE 105 mg/dl (70-99); POTASSIUM 4.1 mmol/L (3.5-5.1); SODIUM 142 mmol/L (136-145)
[2016-07-04 07:37] VITALS: BP 108/68; PULSE 73; TEMP 36.9; O2SAT 98
[2016-07-04] MEDS: MESALAMINE 400 MG CAPDR PO SCH ×2 (08:05→13:56)
[2016-07-04] MEDS: PANTOprazole INJ 40 MG in SYRINGE 0 ML IV SCH (11:13)
[2016-07-04] MEDS ORDERED: PRED-301 PO (14:02)
[2016-07-04] MEDS ORDERED: ASC400 PO (14:02)
--- NOTE | 2016-07-04 14:10 | Discharge Instructions ---
Discharge Instructions Date of Service Jul 04, 2016. Admission Reason for Admission: Bloody Diarrhea,Leukocytosis Discharge Discharge Diagnosis / Problem: Bloody diarrhea, severe colitis of undetermined etiology Discharge Goals Goal(s): Decrease discomfort, Increase independence, Improve disease control, Diagnostic testing Activity Recommendations Activity Limitations: resume your previous activity . Instructions / Follow-Up Instructions / Follow-Up You presented to the hospital with bloody diarrhea and colonoscopy was performed. You found to have severe colitis but the etiology is unclear. Your stool work ups are still pending. You are started on steroid, please take it as follows: - 30mg daily for 1 week, 20mg daily for 1 week, 10mg daily for 1 week, 5 mg daily for 1 week, and 5mg every other for 1 week. You also started on new medication Mesalamine 800mg 3X daily. Please follow up with the GI doctor in 1-2 weeks. Please call the office to make the appointment. Current Hospital Diet Patient's current hospital diet: Low Fiber Diet Discharge Diet Recommended Diet: Regular Diet Procedures Procedures Performed: COLONOSCOPY WITH BX Pending Studies Studies pending at discharge: yes List of pending studies: Stool workups, stool O&P School Instructions Return To School: 1 day Additional Instructions: Patient was admitted to the hospital for bloody diarrhea. Medical Emergencies . Who to Call and When: Medical Emergencies: If at any time you feel your situation is an emergency, please call 911 immediately. . Non-Emergent Contact Non-Emergency issues call your: Primary Care Provider . . "Provider Documentation" section prepared by Shannan Burton. VTE Core Measure Inpt VTE Proph given/why not?: Contraindicated
[2016-07-04 14:33] VITALS: BP 108/68; PULSE 73; TEMP 36.9; O2SAT 98
[2016-07-04 15:11] VITALS: BP 110/74; PULSE 72; TEMP 36.7; O2SAT 98
--- NOTE | 2016-07-04 16:14 | PROGRESS NOTE ---
DATE: 07/04/2016 The patient states her abdominal pain is significantly better. She is able to tolerate low fiber diet. She has had no diarrhea and she remains afebrile. She has multiple studies pending. Her bacterial pathogen and C. diff returned negative; but her ova and parasites, cryptosporidium, Giardia antigen, Entamoeba histolytica serologies all pending. Biopsy results from her colonoscopy as well as CMV immunostaining of those biopsies are still pending as well. She also has inflammatory bowel disease serologic tests pending. The patient actually is being discharged today on prednisone 30 mg a day and low fiber diet and she will be following up as an outpatient in 1-[address] Hernandez for continued care and definitive diagnosis.
--- NOTE | 2016-07-04 20:49 | Discharge Summary ---
Discharge Summary Date of Service Jul 04, 2016. (Shannan Burton MD) Discharge Summary Admission Date: Jun 30, 2016 at 01:52 Discharge Date: Jul 04, 2016 Discharge Disposition: Home Principal Diagnosis: severe colitis of undetermined etiology Procedures: Patient Name: EPIFANIO PAGE Unit Number: [id number] Dictated: 06/30/16750 Transcribed: 06/30/16750 EV Printed Date/Time: [~ rep prt dt]/[~ rep prt tm] [~ rep ct labl] - [~ rep ct ivnm] [facility] Radiology Department [place], [place] [id number] Dictated: 06/30/16750 Transcribed: 06/30/16750 EV Printed Date/Time: [~ rep prt dt]/[~ rep prt tm] [~ rep ct labl] - [~ rep ct ivnm] CT SCAN OF THE ABDOMEN AND PELVIS WITH IV CONTRAST CLINICAL HISTORY: Diarrhea. Hematochezia. Bloating. Generalized abdominal pain. COMPARISON STUDY: No priors. TECHNIQUE: Following the IV administration of 91 cc of Optiray 320, CT scan of the abdomen and pelvis is performed from the lung bases to the proximal femora. Images are reviewed in the axial, sagittal, and coronal planes. IV contrast was administered without complication. Automated dose control exposure was utilized. CT DOSE: 310.12 mGy.cm FINDINGS: Lung bases: The heart is normal in size and without pericardial effusion. Minimal tree-in-bud nodularity is identified at the left lung base. The lung bases are otherwise clear. Liver: The contrast-enhanced liver is normal in size, contour, and attenuation. There is no intrahepatic biliary ductal dilatation. The hepatic veins and portal veins are patent. Gallbladder: Unremarkable. Spleen: Normal in size and attenuation. Pancreas: Unremarkable. Adrenal glands: Unremarkable. Kidneys: The contrast enhanced kidneys are normal in size and without hydronephrosis. The kidneys enhance symmetrically. Abdominal vasculature: The abdominal aorta is normal in course and caliber. Bowel: The small bowel and colon are normal in course and caliber. There is significant wall thickening and edema identified throughout the colon, Jami involving the cecum and ascending colon. There is significant right sided pericolonic fluid. The appearance is consistent with a nonspecific colitis. The appendix is not clearly visualized, likely due to pericecal inflammation. Peritoneum: There is trace perihepatic free fluid as well as a moderate volume of free fluid in the pelvis. No intraperitoneal free air is seen. There is a fat-containing umbilical hernia. Lymphadenopathy: Prominent mesenteric lymph nodes are likely on a reactive basis. Pelvic viscera: The bladder, uterus, and adnexa are normal as visualized. There are bilateral ovarian follicles. Skeletal structures: No lytic or blastic lesions are seen. IMPRESSION: 1. Findings are consistent with a nonspecific pancolitis, likely on an infectious or inflammatory basis in this age group. 2. There is a small volume of associated abdominopelvic ascites Electronically signed by: Ethan Dutta M.D. 06/30/2016 7:56 AM Dictated Date/Time: 06/30/2016 7:51 AM The status of this report is Signed. Draft = Not yet reviewed or approved by Radiologist. Signed = Reviewed and approved by Radiologist. <AttendingPhy>Alex Hui M.D.</AttendingPhy> <FamilyPhy>[facility]</FamilyPhy> <PrimaryPhy>[facility]</PrimaryPhy> <UnitNumber>[id number]</UnitNumber> <VisitNumber>[id number]</VisitNumber> < PatientName>EPIFANIO PAGE</PatientName> <DateOfBirth>1995</DateOfBirth> < Location>[facility]</Location> <ServiceDate>06/29/16</ServiceDate> <MNE>ESINDI</MNE > <OrderingPhy>Ethan Huber M.D.</OrderingPhy> <OrderingPhyMNE>f rep ord dr pires</OrderingPhyMNE> <DictatingPhyMNE>f rep dict dr pires</DictatingPhyMNE> < CCListMNE>f rep ct lexis</CCListMNE> <AdmittingPhyMNE>f pt admit dr pires</ AdmittingPhyMNE> <AttendingPhyMNE>f pt attend dr pires</AttendingPhyMNE> <ConsultingPhyMNE>f pt consult dr pires</ConsultingPhyMNE> <FamilyPhyMNE>f pt fam dr pires</FamilyPhyMNE> <OtherPhyMNE>f pt other dr pires</OtherPhyMNE> < PrimaryPhyMNE>f pt prim care dr pries</PrimaryPhyMNE> <ReferringPhyMNE>f pt referring dr pires</ReferringPhyMNE> (Shannan Burton MD) Medication Reconciliation New Medications: Prednisone (Prednisone) 5 Mg Tab 5 MG PO DIRECTED for 35 Days, TAB Take 30mg daily for 1 week, 20mg Daily for 1 week, 10mg daily for 1 week, 5mg daily for 1 week, then 5 mg every other day for 1 week. Mesalamine (Delzicol) 400 Mg Cap 800 MG PO TID for 30 Days, #180 CAP Continued Medications: Albuterol Sulfate (Proair Respiclick) 108 Mcg/Act Aer 2 PUFFS INH Q4H PRN for Cough Azithromycin (Zithromax Z-Cheng) 250 Mg Tab 1 PKT PO UD for 5 Days, #6 TAB PRESCRIBED 06/28/2016, TAKE 2 TABLETS ON FIRST DAY THEN 1 TABLET DAILY UNTIL GONE. Referrals At Discharge Follow up Referrals: Trust Advisor Referral - Within 1-2 Weeks with Evaristo Hernandez M.D. Discharge Exam Review of Systems: Constitutional: No chills, No fever Respiratory: No cough, No dyspnea at rest, No dyspnea on exertion, No shortness of breath, No sputum, No wheezing Cardiovascular: No chest pain Abdomen: No GI bleeding, No constipation, No diarrhea, No nausea, No pain, No vomiting Musculoskeletal: No muscle pain Genitourinary - Female: No dysuria, No hematuria Hematologic / Lymphatic: No abnormal bleeding/bruising, No clotting problems Integumentary: No rash Physical Exam: General Appearance: WD/WN, no apparent distress Neck: supple, trachea midline Respiratory/Chest: chest non-tender, lungs clear, normal breath sounds, no respiratory distress, no accessory muscle use Cardiovascular: regular rate, rhythm, no edema, no murmur Abdomen / GI: normal bowel sounds, non tender, soft Extremities: no calf tenderness, no pedal edema, non-tender Neurologic/Psychiatric: alert, normal mood/affect, oriented x 3 Skin: normal color, warm/dry, no rash (Shannan Burton MD) Review of Systems: Constitutional: No fever Respiratory: No shortness of breath Cardiovascular: No chest pain Abdomen: No nausea, No pain, No vomiting Physical Exam: General Appearance: no apparent distress Respiratory/Chest: lungs clear, no respiratory distress Cardiovascular: regular rate, rhythm Abdomen / GI: normal bowel sounds, non tender, soft Neurologic/Psychiatric: alert, oriented x 3 Skin: warm/dry (Rohini Baker M.D.) Hospital Course This is a 20 y/o F, with no significant PMHx presents with a 24 hour period of bloody diarrhea. She was in [place] about 2 weeks ago for spring and since her return, she has had significant bloating, constipation and no appetitie. She also started experiencing intense sharp pains in her lower abdomen about 4 days ago. The pain is intermittent and about 6/10. About 2 days ago prior coming to the hospital, she went to [facility] for an unrelated cough and had mentioned her symptoms. She was told to take miralax and a laxative for constipation. Since doing so, she has had multiple episodes of bloody diarrhea. She has also been using Pepcid, and peptobismol. No hx of GI bleeding. None of her friends who travelled with her are sick. Denies family history of Ulcerative colitis / Crohns. Hematochezia Patient was admitted to the hospital for further management. Bacterial pathogen (shiga toxin and salmonella) and C.diff are negative. GI was consulted and colonoscopy was performed by Dr. Hernandez. It showed congested, erythematous , granular, hemorrhagic, inflamed and ulcerated mucosa from cecum to sigmoid colon. Ileum, distal rectum and anal verge were normal. Biopsy was taken. Biopsy results and CMV immunostaining of those biopsies are pending. Stool O&P, cryptosporidium, Giardia antigen, and Entamoeba histolytica serologies, and inflammatory bowel disease serologic tests are pending. Patient was started on IV solumedrol 20mg q12h and mesalamine 1600mg TID. Patient symptoms improved and she denied diarrhea or abdominal pain on discharge. I discussed her condition with Dr. Hernandez and he stated it is ok to discharge her on tapered dose of prednisone and follow up with him. She was discharged home on mesalamine and tapered dose of prednisone. Follow up with Dr. Hernandez in 1-2 weeks Total Time Spent: Greater than 30 minutes This includes examination of the patient, discharge planning, medication reconciliation, and communication with other providers. (Shannan Burton MD) I have reviewed the medical record and performed a history and physical examination of this patient today. I have discussed the case with Dr. Burton. The above note reflects my findings, conclusions, and recommendations. Total Time Spent: Greater than 30 minutes (Rohini Baker M.D.) Discharge Instructions Please refer to the electronic Patient Visit Report (Discharge Instructions) for additional information. (Shannan Burton MD) Resident Tracking Resident Involvement: Resident Care Provided Care Provided: Adult Hospital Medicine (Shannan Burton MD)
[2016-07-07 19:37] LABS: S.CEREVISIAE AB IGA 11.4 U (<=20.0); S.CEREVISIAE AB IGG 9.1 U (<=20.0)
[2016-07-08 18:28] LABS: CRYPTOSPORIDIUM AG TC 37213 NOT DETECTED (NOT DETECTED); ISOSPORA+CYCLOSPORA NOT DETECTED; O&P GIARDIA AG NOT DETECTED (NOT DETECTED); O&P SOURCE OTHER
[2016-07-11 17:56] LABS: ENTAMOEBA HISTOLYTICA AB NEGATIVE
== END 2016-07-04 16:45 | disposition home or self-care (01) | DRG 392 ==
LOC: ENRESERVDT → ENRESERVTM → C.EDB 19:39 → C.MS2W 06-30 01:52
PROVIDERS: ADMIT Hospitalist; ATTEND Family Medicine
PROC: 0DBB8ZX Excision of Ileum, Via Natural or Artificial Opening Endoscopic, Diagnostic (ICD-10-PCS; principal; 2016-07-01 11:40)
PROC: 0DBN8ZX Excision of Sigmoid Colon, Via Natural or Artificial Opening Endoscopic, Diagnostic (ICD-10-PCS; principal; 2016-07-01 11:40)
PROC: 0DBH8ZX Excision of Cecum, Via Natural or Artificial Opening Endoscopic, Diagnostic (ICD-10-PCS; principal; 2016-07-01 11:40)
DX: K52.9 Noninfective gastroenteritis and colitis, unspecified (principal); K92.1 Melena; K21.9 Gastro-esophageal reflux disease without esophagitis; D72.829 Elevated white blood cell count, unspecified; Z79.899 Other long term (current) drug therapy

== ENCOUNTER → 2016-12-12 | Outpatient (CLI) | payer BC ==
[~2016-12-12] MED LIST: ALBU18002 INH; ASC400 PO; AZITTAB PO
== END | disposition home or self-care (01) ==
LOC: C.LAB1850 12:13
PROVIDERS: ATTEND Internal Medicine Gastroenterology
DX: K52.9 Noninfective gastroenteritis and colitis, unspecified (principal)